=== PATIENT | male | born 1965 | race Caucasian/White ===

== ENCOUNTER → 2022-05-25 09:55 | Outpatient (CLI) | payer OTHER, SELFPAY ==
[2022-05-25 18:34] LABS: Basophils # 0.1 K/mm3 (0-0.2); Basophils % 0.8 % (0.1-2.0); Eosinophils # 0.3 K/mm3 (0.0-0.4); Eosinophils % 4.5 % (0.1-12.0); Hematocrit 42.6 % (42.0-52.0); Hemoglobin 13.3 g/dL (14.1-18.0); Lymphocytes # 1.2 K/mm3 (0.7-4.5); Lymphocytes % 18.2 % (10-50); Mean Corpuscular HGB Conc 31.3 g/dL (31.8-35.4); Mean Corpuscular Hemoglobin 20.8 pg (27.0-31.2); Mean Corpuscular Volume 66.5 fl (80-94); Mean Platelet Volume 10.8 fl (7.4-10.4); Monocytes # 0.4 K/mm3 (0.1-1.0); Monocytes % 5.4 % (1.7-9.3); Neutrophils # 4.7 K/mm3 (1.8-7.8); Neutrophils % 71.2 % (37.0-80.0); Platelet Count 148 K/mm3 (142-424); Red Cell Distribution Width 16.2 % (11.5-17.5); White Blood Count 6.6 K/mm3 (4.8-10.8)
[2022-05-25 19:36] LABS: Alanine Aminotransferase 24 U/L (12-78); Albumin Level 4.5 g/dl (3.5-5.0); Alkaline Phosphatase 67 U/L (38-126); Anion Gap 6.2 mEq/L (5-15); Aspartate Amino Transferase 30 U/L (17-59); Bilirubin,Total 1.3 mg/dl (0.2-1.3); Blood Urea Nitrogen 9 mg/dl (9-20); Calcium 9.2 mg/dl (8.4-10.2); Carbon Dioxide 34 mmol/L (22.0-30.0); Chloride 102 mmol/L (98-107); Chol/HDL Ratio 2.4 (1-3.5); Cholesterol 127 mg/dl (140-200); Estimated Glomerular Filt Rate 78 ml/min (>60); GFR (African American) 94 ML/MIN (>60); Globulin 2.3 g/dL (1.3-3.2); Glucose 96 mg/dl (74-100); HDL Cholesterol 54 mg/dl (40-60); Potassium 5.2 mmoL/L (3.5-5.1); Sodium 137 mmol/L (136-145); Total Protein,Serum 6.8 g/dl (6.3-8.2); Triglycerides 81 mg/dl (30-150); VLDL Cholesterol 16 mg/dL (0-40)
[2022-05-25 19:47] LABS: Direct LDL Cholesterol 58.55 mg/dL (100-129)
[2022-05-25 20:04] LABS: Prostate Specific Ag Screen 1.3 ng/ml (0.0-4.0)
== END ==
PROVIDERS: PCP Family Medicine; Visit Provider Family Medicine
DX: Z00.00 Encounter for general adult medical examination without abnormal findings (principal); Z12.5 Encounter for screening for malignant neoplasm of prostate
CPT/HCPCS: 80053; 80061; 85025; G0103

== ENCOUNTER → 2022-06-07 14:15 | Outpatient (CLI) | payer OTHER, SELFPAY ==
--- NOTE | 2022-06-07 14:16 | CT_ITS ---
FINAL REPORT CLINICAL HISTORY: lung cancer screening, CURRENT SMOKER FOR 36 YEARS 3/4 PPD FINDINGS: Low-Dose Chest CT Axial images were obtained from the lung apex to the mid abdomen by computed tomography. Low-dose protocol was utilized. CTDI vol (mGy): 2.90 DLP (mGy-cm): 115.16 There is no axillary adenopathy. There is no hilar or mediastinal adenopathy. The heart is proper size. There is no pericardial or pleural effusion. Lung window images demonstrate no suspicious nodule or mass. There is evidence of granulomatous disease. Limited images of the upper abdomen demonstrates several small hypodense lesions in the liver which are too small to characterize. Remainder of the upper abdomen is without acute abnormality. IMPRESSION: Lung RADS category 1S. Recommend 12 month follow-up low-dose chest CT. Modifier S: Small hypodense liver lesions. Reviewed, Interpreted and Dictated by Carla Aviles MD Transcribed by Chanda Carson Authenticated and . [facility]
== END ==
PROVIDERS: PCP Family Medicine; Visit Provider Family Medicine
DX: Z87.891 Personal history of nicotine dependence (principal); Z12.2 Encounter for screening for malignant neoplasm of respiratory organs
CPT/HCPCS: 71271

== ENCOUNTER 2024-08-13 08:21 | Outpatient (CLI) | payer OTHER, SELFPAY ==
--- NOTE | 2024-08-13 08:30 | US_ITS ---
FINAL REPORT TECHNIQUE: Sonographic images of the abdomen were obtained in all four quadrants. CLINICAL HISTORY: abd pain-- epigastric pain FINDINGS: LIVER: Homogeneous. No focal hepatic lesion or intrahepatic biliary dilatation. GALLBLADDER: No gallstones. No pericholecystic fluid collection or gallbladder wall thickening. The common duct measures 4 mm. This is within normal limits for age. PANCREAS: There is a cystic mass in the head of the pancreas measuring 3.5 cm. Some associated calcifications are identified. The pancreatic duct is dilated distally. The portal vein is patent. RIGHT KIDNEY: 11.6 cm. No hydronephrosis, mass or stone. LEFT KIDNEY: 12.5 cm. No hydronephrosis, mass or stone. SPLEEN: 10.9 cm. There is a small hypoechoic lesion adjacent to the pancreas. AORTA/IVC: No abdominal aortic aneurysm. Visualized IVC within normal limits. OTHER: No ascites. IMPRESSION: Cystic mass in the head of the pancreas with pancreatic ductal dilatation. Recommend CT pancreatic protocol. Soft tissue nodule adjacent to the spleen, likely a splenule. Reviewed, Interpreted and Dictated by Carla Aviles MD Transcribed by Norah Burnham Authenticated and . [facility]
== END 2024-08-13 23:59 | disposition home or self-care (01) ==
LOC: RAD 08:22
PROVIDERS: PCP Family Medicine; Visit Provider Nurse Practitioner Family
DX: R10.13 Epigastric pain (principal)
CPT/HCPCS: 76700

== ENCOUNTER 2024-08-14 15:10 | Outpatient (CLI) | payer OTHER, SELFPAY ==
[2024-08-14 19:03] LABS: Alanine Aminotransferase 11 U/L (12-78); Albumin/Globulin Ratio 1.8 (1.1-1.8); Alkaline Phosphatase 61 U/L (38-126); Anion Gap 8.1 mEq/L (5-15); Aspartate Amino Transferase 15 U/L (17-59); Bilirubin,Total 0.7 mg/dl (0.2-1.3); Blood Urea Nitrogen 16 mg/dl (9-20); Calcium 8.8 mg/dl (8.4-10.2); Carbon Dioxide 28 mmol/L (22.0-30.0); Chloride 105 mmol/L (98-107); Chol/HDL Ratio 2.8 (1-3.5); Cholesterol 103 mg/dl (140-200); Estimated Glomerular Filt Rate 77 ml/min (>60); GFR (African American) 94 ML/MIN (>60); Globulin 2.2 g/dL (1.3-3.2); Glucose 100 mg/dl (74-100); HDL Cholesterol 37 mg/dl (40-60); Potassium 4.1 mmoL/L (3.5-5.1); Sodium 137 mmol/L (136-145); Total Protein,Serum 6.2 g/dl (6.3-8.2); Triglycerides 74 mg/dl (30-150); VLDL Cholesterol 15 mg/dL (0-40)
[2024-08-14 19:16] LABS: Direct LDL Cholesterol 46.61 mg/dL (100-129)
[2024-08-14 19:25] LABS: 25-OH Vitamin D, Total 54.1 ng/mL (30-100)
[2024-08-14 19:33] LABS: Prostate Specific Ag Screen 2.4 ng/ml (0.0-4.0); Thyroid Stimulating Hormone 1.25 uIU/mL (0.465-4.68)
[2024-08-14 19:52] LABS: Vitamin B12 517 pg/mL (239-931)
[2024-08-14 22:50] LABS: Basophils # 0.1 K/mm3 (0-0.2); Basophils % 0.9 % (0.1-2.0); Eosinophils # 0.3 Kmm3 (0.0-0.4); Eosinophils % 4.2 % (0.1-12.0); Hematocrit 38.1 % (42.0-52.0); Immature Granulocytes # 0.02 10^3uL; Immature Granulocytes % 0.3 %; Lymphocytes # 1.7 K/mm3 (0.7-4.5); Lymphocytes % 22.4 % (10-50); Mean Corpuscular HGB Conc 31.5 g/dL (31.8-35.4); Mean Corpuscular Hemoglobin 20.4 pg (27.0-31.2); Mean Corpuscular Volume 64.7 fl (80-94); Monocytes # 0.3 K/mm3 (0.1-1.0); Monocytes % 4.5 % (1.7-9.3); Neutrophils # 5.1 K/mm3 (1.8-7.8); Neutrophils % 67.7 % (37.0-80.0); Nucleated Red Blood Cells # 0 10^3/uL; Nucleated Red Blood Cells % 0 %; Platelet Count 176 K/mm3 (142-424); Red Blood Count 5.89 M/mm3 (4.60-6.20); Red Cell Distribution Width 16.8 % (11.5-17.5); Red Cell Distribution Width-SD 36.1 fL; White Blood Count 7.6 K/mm3 (4.8-10.8)
[2024-08-14 23:19] LABS: Total Iron Binding Capacity 285 ug/dL (261-462)
[2024-08-14 23:36] LABS: Iron 103 ug/dL (49-181)
== END 2024-08-14 23:59 | disposition home or self-care (01) ==
LOC: LAB.DROPOF 08-15 08:36
PROVIDERS: PCP Nurse Practitioner Family; Visit Provider Nurse Practitioner Family
DX: Z12.5 Encounter for screening for malignant neoplasm of prostate (principal); K86.89 Other specified diseases of pancreas; R10.9 Unspecified abdominal pain; D64.9 Anemia, unspecified; R53.83 Other fatigue; R53.1 Weakness; F17.210 Nicotine dependence, cigarettes, uncomplicated
CPT/HCPCS: 80053; 80061; 82306; 82607; 83540; 83550; 84436; 84443; 85025; G0103

== ENCOUNTER 2024-08-20 09:13 | Outpatient (CLI) | payer OTHER, SELFPAY ==
--- NOTE | 2024-08-20 09:30 | CT_ITS ---
FINAL REPORT CLINICAL HISTORY: Mass on pancreas COMPARISON: Ultrasound 08/13/2024 FINDINGS: The lung bases are clear. There are multiple benign-appearing cysts in both lobes of the liver measuring up to 1.2 cm. The gallbladder is mildly distended. The spleen is at the upper limits of normal in size. There is a complex predominantly cystic mass in the pancreatic head measuring 3.2 cm in diameter with peripheral calcification. The main pancreatic duct is distended up to 5 mm. The adrenal glands and kidneys are unremarkable. The urinary bladder is incompletely distended. No pelvic free fluid is seen. IMPRESSION: Complex predominantly cystic mass pancreatic head with associated peripheral calcifications and distended main pancreatic duct. Findings favor pseudocyst as sequela from prior pancreatitis. Cystic pancreatic neoplasm considered less likely. Reviewed, Interpreted and Dictated by Marcin Odonnell MD Transcribed by Ermelinda Berrios Authenticated and [facility]
[2024-08-20] MEDS: SODIUM CHLORIDE 0.9% 10ML SYR (RAD ONLY) 10 ML IV (09:49)
[2024-08-20] MEDS: IOPAMIDOL-370 (76%);100ML BOTTLE 75 ML IV (09:50)
== END 2024-08-20 23:59 | disposition home or self-care (01) ==
PROVIDERS: PCP Nurse Practitioner Family; Visit Provider Nurse Practitioner Family
DX: K86.89 Other specified diseases of pancreas (principal)
CPT/HCPCS: 74178; Q9967

== ENCOUNTER 2024-09-06 10:40 | Outpatient (CLI) | payer OTHER, SELFPAY ==
[2024-09-06 11:30] LABS: Basophils # 0.1 K/mm3 (0-0.2); Eosinophils # 0.3 Kmm3 (0.0-0.4); Eosinophils % 5.7 % (0.1-12.0); Hemoglobin 11.3 g/dL (14.1-18.0); Immature Granulocytes # 0.01 10^3uL; Immature Granulocytes % 0.2 %; Lymphocytes # 1.4 K/mm3 (0.7-4.5); Lymphocytes % 23.5 % (10-50); Mean Corpuscular HGB Conc 31.4 g/dL (31.8-35.4); Mean Corpuscular Hemoglobin 20.3 pg (27.0-31.2); Mean Corpuscular Volume 64.7 fl (80-94); Monocytes # 0.4 K/mm3 (0.1-1.0); Monocytes % 6.4 % (1.7-9.3); Neutrophils # 3.7 K/mm3 (1.8-7.8); Neutrophils % 63.2 % (37.0-80.0); Nucleated Red Blood Cells # 0 10^3/uL; Nucleated Red Blood Cells % 0 %; Platelet Count 179 K/mm3 (142-424); Red Blood Count 5.56 M/mm3 (4.60-6.20); Red Cell Distribution Width 16.4 % (11.5-17.5); Red Cell Distribution Width-SD 36.5 fL; White Blood Count 5.8 K/mm3 (4.8-10.8)
[2024-09-06 11:36] LABS: INR 1.05 (0.9-1.1); Prothrombin Time 11.6 seconds (10.1-12.5)
[2024-09-06 11:50] LABS: Alanine Aminotransferase 22 U/L (12-78); Albumin Level 4.1 g/dl (3.5-5.0); Albumin/Globulin Ratio 2.1 (1.1-1.8); Alkaline Phosphatase 50 U/L (38-126); Anion Gap 9.5 mEq/L (5-15); Aspartate Amino Transferase 20 U/L (17-59); Bilirubin,Total 0.9 mg/dl (0.2-1.3); Blood Urea Nitrogen 11 mg/dl (9-20); Calcium 8.9 mg/dl (8.4-10.2); Carbon Dioxide 32 mmol/L (22.0-30.0); Chloride 102 mmol/L (98-107); Estimated Glomerular Filt Rate 100 ml/min (>60); GFR (African American) 121 ML/MIN (>60); Glucose 93 mg/dl (74-100); Potassium 4.5 mmoL/L (3.5-5.1); Sodium 139 mmol/L (136-145); Total Protein,Serum 6.1 g/dl (6.3-8.2)
[2024-09-07 05:35] LABS: CA 19-9 27 U/mL (0-35)
[2024-09-10 07:11] LABS: ALT (SGPT) P5P 21 IU/L (0-55); AST (SGOT) P5P 19 IU/L (0-40); Alpha 2-Macroglobulins, Qn 145 mg/dL (110-276); Apolipoprotein A-1 117 mg/dL (101-178); Bilirubin, Total 0.5 mg/dL (0.0-1.2); Cholesterol, Total 106 mg/dL (100-199); Fibrosis Score 0.17 (0.00-0.21); GGT 14 IU/L (0-65); Glucose 98 mg/dL (70-99); Haptoglobin 109 mg/dL (29-370); Steatosis Score 0.35 (0.00-0.40); Triglycerides 106 mg/dL (0-149)
== END 2024-09-06 23:59 | disposition home or self-care (01) ==
LOC: LAB 10:41
PROVIDERS: PCP Nurse Practitioner Family; Visit Provider Nurse Practitioner Family
DX: F10.10 Alcohol abuse, uncomplicated (principal)
CPT/HCPCS: 36415; 80053; 82172; 82247; 82465; 82947; 82977; 83010; 83883; 84450; 84460; 84478; 85025; 85610; 86301

== ENCOUNTER 2024-09-10 07:45 | Outpatient (CLI) | payer OTHER, SELFPAY ==
--- NOTE | 2024-09-10 08:00 | MR_ITS ---
FINAL REPORT TECHNIQUE: Multiplane are and multisequence imaging of the abdomen was obtained without contrast per MRCP protocol. 3-D MIP reconstructed images were obtained and reviewed. CLINICAL HISTORY: dilated pancreatic duct/complex cyst pancreas head pain started on july 05 2024 epigastric pain with nausea pt hasnt had pain x 1.5 weeks COMPARISON: CT abdomen and pelvis 08/20/2024. FINDINGS: There are several T1 hypointense and T2 hyperintense lesions in the liver, favor hepatic cysts. The gallbladder is present without evidence of gallstones. The common bile duct is normal in caliber. The spleen is normal in size and signal intensity. The adrenal glands are unremarkable without evidence of an adrenal nodule. There is a cystic lesion in the head of the pancreas, that measures 4.2 cm in size, increased in size when compared to the prior CT of 08/20/2024. The calcifications in the pancreas noted on the prior CT are less apparent on MRI evaluation. The kidneys are normal without hydronephrosis or mass. Limited evaluation of the GI tract is within normal limits. There is no lymphadenopathy or ascites. MRCP images demonstrate that the cystic lesion in the head of the pancreas does not convincingly communicate with the pancreatic duct. The pancreatic duct is dilated in the body and tail distal to the cyst. Would favor that the large cystic lesion in the head of the pancreas represents a pseudocyst as most likely, and cystic pancreatic neoplasm or IPMN are felt to be less likely. IMPRESSION: Cystic lesion in the head of the pancreas measures 4.2 cm in size, enlarged when compared to the prior CT of 08/20/2024. As described above, this lesion does not convincingly communicate with the pancreatic duct. Favor pseudocyst over cystic pancreatic neoplasm or IPMN. Pancreatic duct dilatation in the body and tail distal to the cyst, favor sequela of prior pancreatitis. Multiple probable hepatic cysts as described above. Reviewed, Interpreted and Dictated by Carla Aviles MD Transcribed by Lindsay Swanson Authenticated and [facility]
== END 2024-09-10 23:59 | disposition home or self-care (01) ==
PROVIDERS: PCP Nurse Practitioner Family; Visit Provider Nurse Practitioner Family
DX: K86.89 Other specified diseases of pancreas (principal); K86.3 Pseudocyst of pancreas; K76.89 Other specified diseases of liver
CPT/HCPCS: 74181; 76376